=== PATIENT | female | born 1975 | race Two or more races ===

== ENCOUNTER 2025-01-20 03:59 | Emergency (ER) | payer SELFPAY ==
[~2025-01-20] VITALS: Ht 154.9 cm; Wt 64.0 kg
[2025-01-20] MEDS: TETRACAINE HCL 0.5% OPTH(EYE) SOLN 4ML RIGHTEYE ONE (05:37)
[2025-01-20] MEDS: FLUORESCEIN SOD OPTH TEST STRIP RIGHTEYE ONE (05:37)
[2025-01-20 05:38] VITALS: BP 141/81; PULSE 84; RESP 20; TEMP 97.9; O2SAT 100
[2025-01-20] MEDS ORDERED: MOXI0.5D9 LEFTEYE (06:00)
--- NOTE | 2025-01-20 06:01 | ED.PDOC ---
Eye-HPI HPI Comments C/C: PATIENT STATES THAT SHE MAY HAVE GOTTEN SOMETHING IN HER EYE EARLIER TODAY BECAUSE SHE WAS "REMOVING PAINT FROM A CAR" AND FELT SOMETHING IN HER RIGHT EYE. AFTER RUBBING HER EYE IT BECAME SWOLLEN AND THE PAIN WORSENED. PATIENT STATES THAT SHE CAN'T OPEN HER EYE. ALL VSS. DENIES VISION CHANGES Chief Complaint: Eye Problem Time Seen by MD: 04:04 Reviewed Notes: Nurses Notes, Medications, Allergies Allergies: Coded Allergies: NO KNOWN ALLERGIES (Unverified , 01/20/25) Home Meds Active Scripts Moxifloxacin Hydrochloride (Moxifloxacin) 0.5 % Romeo, 1 DROP LEFTEYE TID for 7 Days, #3 ML Prov:RACHEL CHAVARRIA [employer] SUPPORT MANAGER 01/20/25 Information Source: Patient Mode of Arrival: Ambulatory Past Medical History PAST MEDICAL HISTORY: Denies Surgical History: Denies all surgeries WRIST LINER History: No Pertinent WRIST LINER History Family History Family History: Unknown Social History Smoker: Non-Smoker Alcohol: Denies ETOH Use Drugs: Denies Drug Use Constitutional: denies: chills, diaphoresis, fatigue, fever, malaise, sweats, weakness, others EENTM: reports: ear pain, eye redness; denies: blurred vision, double vision, ear bleeding, ear discharge, ear drainage, ear ringing, eye pain, hearing loss, mouth pain, mouth swelling, nasal discharge, nose bleeding, nose congestion, nose pain, photophobia, tearing, throat pain, throat swelling, voice changes, others Respiratory: denies: cough, hemoptysis, orthopnea, SOB at rest, shortness of breath, SOB with excertion, stridor, wheezing, others Cardiovascular: denies: chest pain, dizzy spells, diaphoresis, Dyspnea on exertion, edema, irregular heart beat, left arm pain, lightheadedness, palpitations, PND, syncope, others Gastrointestinal: denies: abdomen distended, abdominal pain, blood streaked bowels, constipated, diarrhea, dysphagia, difficulty swallowing, hematemesis, melena, nausea, poor appetite, poor fluid intake, rectal bleeding, rectal pain, vomiting, others Genitourinary: denies: abnormal vagina bleeding, burning, dyspareunia, dysuria, flank pain, frequency, hematuria, incontinence, pain, , vagina discharge, urgency, others Neurological: denies: dizziness, fainting, headache, left sided numbness, left sided weakness, numbness, paresthesia, pre-existing deficit, right sided numbness, right sided weakness, seizure, speech problems, tingling, tremors, weakness, others Musculoskeletal: denies: back pain, gout, joint pain, joint swelling, muscle pain, muscle stiffness, neck pain, others Integumetry: denies: bruises, change in color, change in hair/nails, dryness, laceration, lesions, lumps, rash, wounds, others Allergic/Immunocompromised: denies: Difficulty Healing, Frequent Infections, Hives, Itching, others Hematologic/Lymphatic: denies: anemia, blood clots, easy bleeding, easy bruising, swollen glands, others Endocrine: denies: excessive hunger, excessive sweating, excessive thirst, excessive urination, flushing, intolerance to cold, intolerance to heat, unexplained weight gain, unexplained weight loss, others Psychiatric: denies: anxiety, bipolar disorder, depression, hopeless, panic disorder, schizophrenia, sleepless, suicidal, others Physical Exam General Appearance: No Apparent Distress, Normal HEENT: Pharynx Normal, TMs Normal, Other (RIGHT EYE SCLERAE INJECTED CLEAR DRAINAGE NO NOTED OBVIOUS FOREIGN BODY) Neck: Full Range of Motion, Non-Tender, Normal, Normal Inspection Respiratory: Chest Non-Tender, Lungs Clear, No Accessory Muscle Use, No Respiratory Distress, Normal Breath Sounds Cardiovascular: No Edema, No JVD, No Murmur, No Gallop, Normal Peripheral Pulses, Regular Rate/Rhythm Breast Exam: Deferred Gastrointestinal: No Organomegaly, Non Tender, No Pulsatile Mass, Normal Bowel Sounds, Soft Genitalia: Deferred Pelvic: Deferred Rectal: Deferred Extremities: No calf tenderness, Normal capillary refill, Normal inspection, Normal range of motion, Non-tender, No pedal edema Musculoskeletal : Apperance: Normal Neurologic: Alert, diesel mechanic II-XII nml as Tested, No Motor Deficits, Normal Affect, Normal Mood, No Sensory Deficits Cerebellar Function: Normal Reflexes: Normal Skin: Dry, Normal Color, Warm Lymphatic: No Adenopathy Was a procedure done? Was a procedure done?: Yes Sedation Sedation?: No Informed consent obtained: Yes Other Procedure Procedure WOOD'S LAMP EXAM Indication POSSIBLE FOREIGN BODY Anesthetic TETRACAINE 0.1% Prep FLUORESCEIN Success SCLERAE ABRASIONS NO NOTED CORNEAL ABRASIONS LESIONS, LACERATIONS OR ULCERATIONS. NO NOTED FOREIGN BODIES OR PENETRATING OBJECT Informed consent obtained: Yes Risks, benefits, and alternati: Yes Notes PATIENT TOLERATED WELL I FLUSHED WITH NORMAL SALINE EENT DIFF Eye: Conjunctivitis, Corneal Ulceration, Foreign Body-Conjunctiva, Foreign Body-Corneal, Foreign Body-Intraocular, Foreign Body-Lid X-Ray, Labs, Meds, VS Vital Signs Date Time Temp Pulse Resp B/P (MAP) Pulse Ox O2 Delivery O2 Flow Rate FiO2 01/20/25 05:38 97.9 84 20 141/81 (101) 100 97.9 01/20/25 05:38 84 20 100 Room Air 01/20/25 04:30 97.9 90 20 129/75 (93) 98 97.9 X-Ray, Labs, Meds, VS Comment SEE PROCEDURE NOTE. SCRIPT MOXIFLOXACIN PATIENT'S PHARMACY ON FILE TAKE MEDICATIONS PRESCRIBED SIDE EFFECTS DISCUSSED. FOLLOW UP WITH OPHTHALMOLOGY 24-48 HOURS IF SYMPTOMS PERSIST. DISCUSSED ER RETURN PRECAUTIONS PATIENT INDICATED UNDERSTANDING AGREES WITH DISCHARGE PLAN OF CARE. Time of 1ST Reevaluation: 05:55 Reevaluation 1ST: Improved Patient Education/Counseling: Diagnosis, Treatment, Prognosis, Need For Follow Up Family Education/Counseling: Diagnosis, Treatment, Prognosis, Need For Follow Up Departure 1 Departure Time of Disposition: 05:56 Impression: Primary Impression: Abrasion of sclera of left eye Qualified Codes: S05.8X2A - Other injuries of left eye and orbit, initial encounter Disposition: HOME / SELF CARE / HOMELESS Condition: Stable e-Prescriptions Moxifloxacin Hydrochloride (Moxifloxacin) 0.5 % Romeo 1 DROP LEFTEYE TID for 7 Days, #3 ML Prov: RACHEL CHAVARRIA 01/20/25 Discharged With: Spouse Critical Care Note Critical Care Time?: No Stability Stability form required: No RACHEL CHAVARRIA Jan 20, 2025 06:01
== END 2025-01-20 06:05 | disposition home or self-care (01) ==
LOC: ER 03:59
DX: S05.02XA Injury of conjunctiva and corneal abrasion without foreign body, left eye, initial encounter (principal); Z79.899 Other long term (current) drug therapy; X58.XXXA Exposure to other specified factors, initial encounter; Y93.89 Activity, other specified; Y92.89 Other specified places as the place of occurrence of the external cause; Y99.8 Other external cause status